=== PATIENT | male | born 1940 ===

== ENCOUNTER 2018-02-18 09:16 | Day surgery (SDC) | payer MEDICARE ==
[2018-02-17 13:34] VITALS: BMI 33.2
[2018-02-18] MEDS ORDERED: Propofol 10 mg/ml Inj (20 ML) ONE (10:10)
[2018-02-18] MEDS ORDERED: Lactated Ringer's 1,000 ML IV ONE (10:20)
[2018-02-18] MEDS ORDERED: Lidocaine Hydrochloride 5 ML INJ ONE (11:04)
[2018-02-18 11:16] VITALS: TEMP 97.3
[2018-02-18 12:06] VITALS: BP 157/88; PULSE 58; RESP 18; O2SAT 97
== END 2018-02-18 11:45 | disposition home or self-care (01) ==
LOC: C.ENDO 09:16
PROVIDERS: ATTEND Internal Medicine Gastroenterology
DX: Z12.11 Encounter for screening for malignant neoplasm of colon (principal); K64.1 Second degree hemorrhoids; I10 Essential (primary) hypertension; N40.0 Benign prostatic hyperplasia without lower urinary tract symptoms; E80.6 Other disorders of bilirubin metabolism; Z87.19 Personal history of other diseases of the digestive system
CPT/HCPCS: G0105; J2704; J7120